=== PATIENT | female | born 1955 | race Caucasian/White ===

== ENCOUNTER → 2016-10-01 07:07 | Day surgery (SDC) | payer BC ==
[~2016-10-01 07:07] MED LIST: Acetaminophen TAB* 325 MG PO PRN; Buffered Lidocaine 1% SYR 3ML* 3 ML/SYR SYRINGE INTRADERM ONE; Cyclopentolate 1% OPTH.SOL* 2 ML BTL ONE; Flurbiprofen 0.03% OPTH.SOL* 2.5 ML BTL ONE; Lidocaine 1% MPF* 2 ML VIAL ONE; Midazolam* 1 MG/ML 2 ML VIAL (2 MG) ONE; Neomycin/Polymy/Dex OPHTH.OIN* 3.5 GM ONE; Phenylephrine 2.5% OPTH.SOL* 2 ML BTL ONE; Povidone Iodine 5% OPTH* 30 ML BTL ONE; Tetracaine 0.5% OPTH.SOL 4 ML* 1 DROP BTL ONE; acetaZOLAMIDE TAB* 250 MG ONE
[2016-10-01 09:17] VITALS: BP 141/69
--- NOTE | 2016-10-02 03:07 | OP ---
DATE OF OPERATION: 10/01/16 - [facility] DATE OF : 55 SURGEON: Josiah Bartlett MD ANESTHESIOLOGIST: Nile Pak MD ANESTHESIA: Monitored anesthesia care. PRE-OP DIAGNOSIS: Cataract of the right eye. POST-OP DIAGNOSIS: Cataract of the right eye. OPERATIVE PROCEDURE: Cataract extraction of the right eye. IMPLANTS: SN6AT6 17.5 diopter lens to the right eye at 78 degrees. COMPLICATIONS: None. DESCRIPTION OF PROCEDURE: The patient was given phenylephrine 2.5% and cyclopentolate 1% eye drops to the operative eye in the preoperative area. The patient was sat up and markings were placed on the cornea to assist with toric lens placement. The patient was brought to operating room where a time-out was taken to identify the correct patient, site and side of surgery. The patient's right eye was prepped and draped in the usual sterile fashion with 5% Betadine. A second time out was taken to verify the correct patient site and side of surgery and correct lens selection. A lid speculum was placed to the right eye. A Malhotra degree marker was used to align with the previous markings and indicate 78 degrees on the cornea to assist with toric lens placement. A 1 mm paracentesis blade was used to make a clear corneal incision in the superotemporal position. Preservative free 1% lidocaine was then injected into the anterior chamber. DuoVisc was then injected into the anterior chamber. A 2.75 mm Keratome blade was used to make a triplanar incision at the inferotemporal position. A cystitome was used to initiate a capsulorrhexis which was completed with Utrata forceps in a continuous and curvilinear manner. Hydrodissection lens was then performed with BSS on a cannula. The lens could be spun in the capsular bag. A phacoemulsification handpiece was then used with a dumkkj-lyk-stoibop technique to remove the nucleus in its entirety with 19.32 CDE. The I/A handpiece was then used to remove the residual cortical lens material. The DuoVisc was then injected to inflate the capsular bag. The planned SN6AT6 17.5 diopter lens was then injected into the bag and rotated to 78 degrees. The residual DuoVisc was then removed from the eye with an I/A handpiece and the lens was again confirmed to be at 78 degrees. The corneal incisions were then hydrated and no leaks occurred at physiologic pressure on 20 mmHg per palpation. The lid speculum was then removed and drapes removed. Maxitrol ointment was then placed on the surface of the operative eye and an adhesive patch and shield were then placed on the operative eye. The patient was taken to the postoperative area in stable condition. [id number]/[facility] #: [id number] MTDAngelica
== END | disposition home or self-care (01) ==
LOC: OREAST 07:07
PROVIDERS: ATTEND Student in an Organized Health Care Education/Training Program
DX: H25.11 Age-related nuclear cataract, right eye (principal); Z87.891 Personal history of nicotine dependence
CPT/HCPCS: A9270-GY; J2250; V2787

== ENCOUNTER → 2016-10-15 07:15 | Day surgery (SDC) | payer BC ==
[~2016-10-15 07:15] MED LIST changes: -Buffered Lidocaine 1% SYR 3ML* 3 ML/SYR SYRINGE INTRADERM ONE; +Buffered Lidocaine 1% SYRIN* 3 ML/SYR SYRINGE INTRADERM ONE
[2016-10-15 09:19] VITALS: BP 132/68
--- NOTE | 2016-10-16 01:17 | OP ---
DATE OF OPERATION: 10/15/16 - [facility] DATE OF : 55 SURGEON: Josiah Bartlett MD ANESTHESIOLOGIST: Tay Angeles MD ANESTHESIA: Monitored anesthesia care. PRE-OP DIAGNOSIS: Cataract of left eye. POSTOP DIAGNOSIS: Cataract of left eye. OPERATIVE PROCEDURE: Cataract extraction, left eye. IMPLANTS: SN60WF 17.0 diopter lens to the left eye. COMPLICATIONS: None. DESCRIPTION OF PROCEDURE: The patient was given phenylephrine 2.5% and cyclopentolate 1% eye drops to the operative eye in the preoperative area. The patient was brought to the operating room where a time-out was taken to identify the correct patient site and side of surgery. The patient's left eye was prepped and draped in the usual sterile fashion with 5% Betadine. A second time-out was taken to verify the correction patient site and side of surgery and correct lens selection. A lid speculum was then placed to the left eye. A 1 mm paracentesis blade was used to make a clear corneal incision in the inferotemporal position. Preservative free 1% lidocaine was injected into the anterior chamber. DuoVisc was then injected into the anterior chamber. A 2.75 mm Keratome blade was used to make a triplanar incision at the superotemporal position. A cystitome was used to initiate a capsulorrhexis, which was completed with Utrata forceps in a continuous and curvilinear manner. Hydrodissection lens was then performed with BSS on a cannula. The lens could be spun in the capsular bag. A phacoemulsification handpiece was then used in a aappra-xmh-pqpkrpw technique to remove the nucleus in its entirety with 12.51 CDE. The I/A handpiece was then used to remove the residual cortical lens material. The DuoVisc was then injected to inflate the capsular bag. The planned SN60WF 17.0 diopter lens was then injected into the capsular bag. The residual DuoVisc was then removed from the eye with the I/A hand-piece. The corneal incisions were then hydrated and no leaks occurred at physiologic pressure around 20 mmHg per palpation. The lid speculum was then removed and drapes removed. Maxitrol ointment was then placed to the surface of the operative eye. An adhesive patch and shield were then placed on the operative eye. The patient was taken to the postoperative area in stable condition. [id number]/[facility] #: [id number] YAHAIRA
== END | disposition home or self-care (01) ==
LOC: OREAST 07:15
PROVIDERS: ATTEND Student in an Organized Health Care Education/Training Program
DX: H25.12 Age-related nuclear cataract, left eye (principal); Z87.891 Personal history of nicotine dependence
CPT/HCPCS: J2250; V2632